=== PATIENT | female | born 1970 | race African-American/Black ===

== ENCOUNTER 2016-11-22 15:39 | Inpatient (IN) | payer MEDICAID, OTHER ==
[~2016-11-22] VITALS: Ht 167.6 cm; Wt 103.9 kg
[2016-11-22] MEDS ORDERED: SODIUM CHLORIDE 0.9% 1,000 ML IV ONE (15:50)
[2016-11-22] MEDS ORDERED: MORPHINE SULFATE 4 MG/ML SYRG IV ONE (16:00)
[2016-11-22] MEDS ORDERED: ONDANSETRON HCL 4 MG/2 ML VIAL IV ONE (16:00)
[2016-11-22 16:42] LABS: Basophils # (auto) 0 uL; Basophils % (auto) 0.3 % (0.0-2.0); CONDITION Y; Eosinophils # (auto) 0.1 uL; Eosinophils % (auto) 1.8 % (0.0-7.0); Hematocrit 41.3 % (36.0-46.0); Hemoglobin 13.8 g/dL (12.2-16.2); Lymphocytes # (auto) 2.2 uL; Lymphocytes % (auto) 37.9 % (10.0-50.0); Mean Corpuscular Hemoglobin 29.3 pg (28.0-32.0); Mean Corpuscular Hgb Conc. 33.3 g/dL (32.0-36.0); Mean Platelet Volume 8.5 fL (7.4-10.4); Monocytes # (auto) 0.4 uL; Monocytes % (auto) 7.2 % (0.0-12.0); Neutrophils # (auto) 3.1 uL; Neutrophils % (auto) 52.8 % (37.0-80.0); Platelet Count (auto) 346 10^3/uL (140-450); Red Cell Distribution Width 15.6 % (11.6-16.0); White Blood Cell 5.9 10^3/uL (4.4-10.8)
[2016-11-22 17:05] LABS: Albumin 3.8 g/dL (3.4-5.0); Alkaline Phosphatase 110 U/L (45-117); Anion Gap 10 (5-15); Aspartate Aminotransferase 17 U/L (15-37); BUN/Creatinine Ratio 10.3; Bilirubin, Total 0.9 mg/dL (0.2-1.0); Blood Urea Nitrogen 7 mg/dL (7-18); Carbon Dioxide 26 mmol/L (21-32); Chloride 103 mmol/L (98-107); GFR African American 121 mL/min; GFR Non-African American 100 mL/min; Glucose 79 mg/dL (74-106); Magnesium 2.3 mg/dL (1.6-2.6); Potassium 3.5 mmol/L (3.5-5.1); Sodium 139 mmol/L (136-145); Total Protein 8.5 g/dL (6.4-8.2)
[2016-11-22 17:14] LABS: INR 0.98 (0.9-1.15); Partial Thromboplastin Time 26.4 sec (22.64-33.71); Prothrombin Time 10.7 sec (9.37-12.3)
[2016-11-22] MEDS ORDERED: MORPHINE SULF INJ 2 MG/ML SYRINGE 1ML IV PRN ×2 (19:15)
[2016-11-22] MEDS ORDERED: LORazepam 0.5 MG TAB PO PRN (19:15)
[2016-11-22] MEDS ORDERED: ONDANSETRON HCL 4 MG/2 ML VIAL IV PRN (19:15)
[2016-11-22] MEDS ORDERED: ALUM & MAG HYDROX-SIMETH LIQ(MAALOX) 30 ML PO ONE (19:15)
[2016-11-22] MEDS ORDERED: ZOLPIDEM TARTRATE 5 MG TAB PO PRN (19:15)
[2016-11-22] MEDS ORDERED: ACETAMINOPHEN 325 MG TAB PO PRN (19:15)
[2016-11-22] MEDS ORDERED: NITROGLYCERIN 0.4 MG SL TAB SL PRN ×2 (19:15)
[2016-11-22 20:04] LABS: B-Type Natriuretic Peptide 3.55 pg/mL (0-100)
[2016-11-22 20:10] LABS: Temperature: 23.1 C (20.0-25.0)
[2016-11-22] MEDS: SODIUM CHLOR 0.9% PF (SALINE LOCK) 10ML VIAL IV SCH (21:42)
[2016-11-22] MEDS: ATORVASTATIN 20 MG TAB PO SCH (22:20)
[2016-11-22] MEDS: CARVEDILOL 3.125 MG TAB PO SCH (22:20)
[2016-11-22 23:57] VITALS: BP 152/91
[2016-11-23] MEDS ORDERED: LISI10TA6 PO (00:51)
[2016-11-23 04:00] LABS: Urine Bilirubin Negative (Negative); Urine Blood Negative /uL (Negative); Urine Color Yellow (Yellow); Urine Glucose Normal (Normal); Urine Ketone Negative (Negative); Urine Nitrite Negative (Negative); Urine RBC <1 /hpf (0 - 4); Urine Squamous Epithelial Cell FEW /hpf (<5); Urine Urobilinogen Normal (Negative); Urine pH 5.5 (5.0-8.0)
[2016-11-23] MEDS: SODIUM CHLOR 0.9% PF (SALINE LOCK) 10ML VIAL IV SCH ×3 (05:21→22:08)
[2016-11-23 05:42] VITALS: BP 120/72
[2016-11-23 06:02] LABS: Basophils # (auto) 0 uL; Basophils % (auto) 0.6 % (0.0-2.0); CONDITION Y; Eosinophils # (auto) 0.1 uL; Eosinophils % (auto) 2.1 % (0.0-7.0); Hematocrit 38.3 % (36.0-46.0); Hemoglobin 12.7 g/dL (12.2-16.2); Lymphocytes % (auto) 39.7 % (10.0-50.0); Mean Corpuscular Hemoglobin 28.9 pg (28.0-32.0); Mean Corpuscular Hgb Conc. 33.2 g/dL (32.0-36.0); Mean Corpuscular Volume 86.9 fL (80.0-100.0); Mean Platelet Volume 7.9 fL (7.4-10.4); Monocytes # (auto) 0.4 uL; Monocytes % (auto) 8.8 % (0.0-12.0); Neutrophils # (auto) 2.4 uL; Neutrophils % (auto) 48.8 % (37.0-80.0); Platelet Count (auto) 312 10^3/uL (140-450); Red Cell Distribution Width 15.4 % (11.6-16.0)
[2016-11-23 06:34] LABS: Albumin 3.2 g/dL (3.4-5.0); BUN/Creatinine Ratio 10.8; Calcium 8.6 mg/dL (8.5-10.1); Magnesium 2.4 mg/dL (1.6-2.6); Potassium 3.6 mmol/L (3.5-5.1); Total Protein 7.2 g/dL (6.4-8.2)
[2016-11-23 09:00] VITALS: BP 148/85
[2016-11-23] MEDS: ASPirin 81 mg TAB PO SCH (11:56)
[2016-11-23] MEDS: CLOPIDOGREL BISULFATE 75 MG TAB PO SCH (11:56)
[2016-11-23] MEDS: DOCUSATE SOD 100 MG CAP PO SCH (11:56)
[2016-11-23] MEDS: CARVEDILOL 3.125 MG TAB PO SCH ×2 (11:58→21:58)
[2016-11-23] MEDS: LISINOPRIL 10 MG TAB PO SCH (11:59)
[2016-11-23 13:00] VITALS: BP 128/67
[2016-11-23 17:00] VITALS: BP 130/84
[2016-11-23] MEDS: ATORVASTATIN 20 MG TAB PO SCH (21:58)
[2016-11-23 22:13] VITALS: BP 143/92
[2016-11-24 05:15] VITALS: BP 143/85
[2016-11-24] MEDS: SODIUM CHLOR 0.9% PF (SALINE LOCK) 10ML VIAL IV SCH ×3 (05:44→22:47)
[2016-11-24 08:00] VITALS: BP 160/89
[2016-11-24 09:00] VITALS: BP 160/89
[2016-11-24] MEDS ORDERED: LABETALOL HCL 5 MG/ML 4ML SYRINGE IV ONE (09:15)
[2016-11-24] MEDS: CLOPIDOGREL BISULFATE 75 MG TAB PO SCH (10:00)
[2016-11-24] MEDS: DOCUSATE SOD 100 MG CAP PO SCH (10:00)
[2016-11-24] MEDS: ASPirin 81 mg TAB PO SCH (10:00)
[2016-11-24] MEDS: CARVEDILOL 3.125 MG TAB PO SCH ×2 (11:04→22:39)
[2016-11-24] MEDS: LISINOPRIL 10 MG TAB PO SCH (11:05)
[2016-11-24] MEDS ORDERED: METOPROLOL TARTRATE 50 MG TAB PO ONE (13:45)
[2016-11-24] MEDS ORDERED: MORPHINE SULFATE 4 MG/ML SYRG IV PRN (14:15)
[2016-11-24] MEDS ORDERED: IOHEXOL 350 MG/ML 100ML IJ ONE (15:38)
[2016-11-24] MEDS: ATORVASTATIN 20 MG TAB PO SCH (22:40)
[2016-11-24 22:57] VITALS: BP 156/94
[2016-11-25] MEDS: SODIUM CHLOR 0.9% PF (SALINE LOCK) 10ML VIAL IV SCH (05:31)
[2016-11-25 05:56] VITALS: BP 138/68
[2016-11-25] MEDS: CARVEDILOL 3.125 MG TAB PO SCH (09:56)
[2016-11-25] MEDS: LISINOPRIL 10 MG TAB PO SCH (09:56)
[2016-11-25] MEDS: DOCUSATE SOD 100 MG CAP PO SCH (09:57)
[2016-11-25] MEDS: ASPirin 81 mg TAB PO SCH (09:57)
[2016-11-25] MEDS: CLOPIDOGREL BISULFATE 75 MG TAB PO SCH (09:59)
[2016-11-25 12:16] VITALS: BP 136/79
[2016-11-25 13:24] VITALS: BP 136/79
== END 2016-11-25 14:30 | disposition home or self-care (01) | DRG 203 ==
LOC: ER 15:39 → TELE 15:40 → TELE-EAST 23:40
PROVIDERS: ADMIT Internal Medicine; ATTEND Internal Medicine
DX: R07.9 Chest pain, unspecified (principal); I10 Essential (primary) hypertension; E66.9 Obesity, unspecified; Z88.2 Allergy status to sulfonamides; Z90.710 Acquired absence of both cervix and uterus; Z98.51 Tubal ligation status; Z71.89 Other specified counseling; Z68.37 Body mass index [BMI] 37.0-37.9, adult
CPT/HCPCS: 36415; 71010; 80053; 80061; 81001; 83735; 83880; 84443; 84484; 85025; 85379; 85610; 85730; 93005; 93306; 94761; 96374; 96375; J2405; J3490